=== PATIENT | female | born 1935 | race African-American/Black ===

== ENCOUNTER 2016-11-16 20:03 | Inpatient (IN) ==
[2016-11-16] MEDS ORDERED: SODIUM CHLORIDE 0.9% 1,000 ML IV STA (21:23)
--- NOTE | 2016-11-16 21:31 | Emergency Department Note ---
Arrival - Arrival Chief Complaint: Fever ED Nursing Triage Note: Pt arrives via ems from home with complaints of decreased appetite and weakness over the last few days. Pt has histroy of Breast cancer and according to daughter she recently had a stomach virus last week and has not been eating since. Pt is noted to have a temp of 99.6 at time of triage. Last chemo treatment was 3 weeks ago and pt is scheduled to return for treatment 11/19/16 at [facility]. Mode of Arrival: Stretcher Time Seen by Provider: 11/16/16 20:58 - History of Present Illness HPI Narrative: This is an 81-year-old female of descent with a history of hypertension , gout, rheumatoid arthritis, and breast cancer receiving Kadcyla every 3 weeks the next dose of which should be in the next 3 days who presents with a fever decrease in appetite and decreased mental status. There has been no cough chest pain or shortness of breath. The patient had what appeared to be a stomach virus approximately 1 week ago characterized by vomiting and diarrhea which is now resolved. Since that time the family is concerned because of the fever and the unwillingness to eat or drink. Date of Last Menstrual Period: hyster Allergies/Adverse Reactions: Allergies Allergy/AdvReac Type Severity Reaction Status Date / Time No Known Allergies Allergy Verified 11/16/16 20:13 Home Medications: Home Medications Medication Instructions Recorded Confirmed Type Allopurinol 100 mg PO DAILY 11/16/16 11/16/16 History Cefuroxime Tab [Ceftin] 500 mg PO BID 11/16/16 11/16/16 History Cholecalciferol (Vitamin D3) 50,000 unit PO DAILY 11/16/16 11/16/16 History [Vitamin D3] Letrozole 2.5 mg PO DAILY 11/16/16 11/16/16 History Losartan Potassium [Cozaar] 100 mg PO DAILY 11/16/16 11/16/16 History Mirtazapine 15 mg PO BEDTIME 11/16/16 11/16/16 History Multivit-Min/FA/Lycopen/Lutein 1 each PO DAILY 11/16/16 11/16/16 History [Centrum Silver Tablet] cloNIDine HCl [Clonidine HCl] 0.1 mg PO DAILY PRN 11/16/16 11/16/16 History Review of System - Review of System Constitutional: Present: fever. Absent: night sweats Eyes: Absent: redness, vision change Head/Ears/Nose/Throat: Absent: epistaxis, nasal drainage Respiratory: Absent: respiratory distress, wheezing Cardiovascular: Absent: dyspnea on exertion, orthopnea Gastrointestinal: Absent: diarrhea, constipation, hematemesis, melena Genitourinary female: Absent: frequency, hematuria Musculoskeletal: Present: joint swelling. Absent: lower back pain, leg pain, neck pain Skin: Absent: change in color, change in hair/nails Neurological: Absent: numbness, paresthesias Psychiatric: Absent: anxiety, suicidal thoughts Endocrine: Absent: heat intolerance, polydipsia Hematological/Lymphatic: Absent: easy bruising, lymphadenopathy Allergic/Immunologic: Absent: urticaria, itchy eyes Medical,Surgical,& Family Hx - Medical History Cardio: History of: Hypertension Rheumatology: History of;: Gout, Rheumatoid Arthritis Reproductive: History of: Breast Cancer - Surgical History Reproductive Surgeries: Surgical HX of;: Hysterectomy - Social History Smoking Status: Never smoker Frequency of Alcohol Use: None Type of Drug Use: None Exam Vital Signs: Vital Signs Temperature 99.6 F 11/16/16 20:03 Pulse Rate 106 H 11/16/16 20:03 Respiratory Rate 20 11/16/16 20:03 Blood Pressure 160/60 11/16/16 20:03 O2 Sat by Pulse Oximetry 99 11/16/16 20:03 - General Exam limited due to: ALOC - Head Head exam: Present: atraumatic, normocephalic - Eye Eye exam: Present: PERRL, EOMI - ENT ENT exam: Present: normal exam - Neck Neck exam: Present: normal inspection, full ROM - Chest Chest inspection: Present: normal inspection - Respiratory Respiratory exam: Present: normal lung sounds bilaterally - Cardiovascular Cardiovascular exam: Present: regular rate, normal rhythm - Abdominal Exam Abdominal exam: Present: other (The patient has diffuse tenderness of the abdomen without guarding or rebound) - Extremities Exam Extremities exam: Present: other (Bilateral knee effusions with warmth is noted) - Back Exam Back exam: Present: normal inspection - Neurological Exam Neurological exam: Present: other (The patient answers questions appropriately but is sleepy.) - Psychiatric Psychiatric exam: Present: normal affect, normal mood - Skin Skin exam: Present: warm, dry
[2016-11-16 22:45] LABS: Apearance,Urine Slightly Hazy (Clear); Bacteria,Urine Occasional /HPF (Few); Bilirubin,Urine Negative (Negative); Blood, Urine Negative (Negative); Glucose,Urine (UA) Negative (Negative); Ketones,Urine 5 mg/dL (Negative); Mucus,Urine Occasional /LPF (Occasional); Nitrite,Urine Negative (Negative); Protein,Urine 30 MG/DL; RBC,Urine 3 /HPF (0-4); Squamous Epithelial Cell,Urine Occasional /HPF (0-10); Urine Color Yellow (Yellow); Urine Specific Gravity 1.013 (1.001-1.035); Urine Urobilinogen < 2.0 EU/DL (0.2-1.0)
[2016-11-16 23:00] LABS: Basophils % 0.1 % (0.0-0.8); Hematocrit 29.9 VOL% (35.7-47.0); Hemoglobin 9.9 GM/DL (12.0-16.0); Immature Granulocytes % 0.5 %; Lymphocytes % 9.7 % (21.3-54.2); Mean Corpuscular HGB Conc 33.1 GM/DL (32-36); Mean Corpuscular Hemoglobin 29 PG (27-34); Mean Corpuscular Volume 86.2 FL (87-102); Mean Platelet Volume 12.3 FL (9.6-12.0); Monocytes # 3.9 10*3/uL (0.11-0.8); Monocytes % 18.7 % (1.7-12.7); Neutrophils # 14.8 10*3/uL (1.4-7.4); Platelet Count 164 T/CUMM (130-400); Red Blood Count 3.47 MC/CUMM (3.8-5.5); Red Cell Distribution Width 13.7 % (9.3-17.3); White Blood Count 20.9 T/CUMM (4-12)
[2016-11-16 23:15] LABS: Albumin 2.5 G/DL (3.4-5.0); Bilirubin,Total 0.8 MG/DL (0.2-1.0); Calcium 10.3 MG/DL (8.5-10.1); Osmolality,Calculated 264.7 MOS/KG (273-304); Potassium 3.7 MMOL/L (3.5-5.1); Total Protein 7.8 G/DL (6.4-8.3)
[2016-11-16] MEDS ORDERED: VANCOMYCIN INJ 1,000 MG in SODIUM CHLORIDE 0.9% 250 ML IV STA (23:58)
[2016-11-16] MEDS ORDERED: PIPERACILLIN/TAZOBACTAM 3,375 MG in SODIUM CHLORIDE 0.9% 100 ML IV STA (23:58)
[2016-11-17] MEDS ORDERED: PIPERACILLIN/TAZOBACTAM 3,375 MG VIAL IV ONE (00:34)
[2016-11-17] MEDS ORDERED: SODIUM CHLORIDE 0.9% 100 ML IV ONE (00:34)
[2016-11-17] MEDS ORDERED: VANCOMYCIN 1,000 MG VIAL ONE (00:34)
[2016-11-17 01:34] LABS: Band Neutrophils 1 % (0-10); Lymphocytes 9 % (20-55); Segmented Neutrophils 69 % (50-85); Total Cells Counted 100
[2016-11-17 01:35] LABS: Platelet Estimate Normal
[2016-11-17] MEDS ORDERED: metroNIDAZOLE INJ 500 MG in PREMIX 1 EACH IV SCH (02:30)
[2016-11-17] MEDS: SODIUM CHLORIDE 0.9% 1,000 ML IV SCH ×3 (02:56→17:56)
--- NOTE | 2016-11-17 04:41 | Event Note ---
Patient seen and examined. Please see H&P for additional details. Briefly, patient is an 81 yo female with PMH significant for breast cancer (last chemo was 3 weeks ago), HTN, vitamin D deficiency, insomnia, and gout. She was admitted for worsening anorexia and weakness which has been going on for several days. Symptoms started after an episode of gastroenteritis characterized by nausea and vomitting, which has now resolved. Patient denies any cough/cp/sob/rash. Vitals reviewed. Tachycardia has resolved. She is hemodynamically and clinically stable. Labs reviewed. CT of the head/chest/abdomen/pelvis reported as unremarkable by ER staff (report not yet available). Active Issues: 1. SIRS: given tachycardia upon admission and leukocytosis. Source of possible infection is unknown. Will continue empiric zosyn. Monitor leukocytosis. Check lactic acid. Await blood culture results. 2. MIRIAM/dehydration: IVFs; monitor renal functions 3. Anorexia-cachexia: poor appetite started after stomach bug. Patient no longer has diarrhea. If recurs, will check for c. diff. Will consult nutrition; add nutritional supplements. 4. Malnutrition 5. Comorbid conditions: h/o breast cancer, HTN, gout: restart home medications as appropriate; medications have been reconciled DVT prophalaxis The plan of care may be modified as more information becomes available.
--- NOTE | 2016-11-17 04:49 | Hospitalist History & Physical ---
Assessment and Plan - Time spent with patient Time spent with patient: Greater than 30 minutes (1) SIRS (systemic inflammatory response syndrome) Status: Acute Assessment and plan: Admit to hospitalist services. WBC 20.9. Tachycardic at 106 bpm. Blood cultures drawn in ED. Fluids and abx given in ED. Continue Zosyn 3.375 mg IV Q8 hours. Continue IV fluids, NS at 125 ml/hr. Check stool for c-diff and culture. Check lactic acid. Recheck CBC and BMP in AM. Current Visit: Yes (2) Dehydration Status: Acute Current Visit: Yes (3) Acute kidney injury Status: Acute Assessment and plan: Creatinine 1.2. Continue IV hydration, NS at 125 ml/hr. Recheck BMP in AM. Current Visit: Yes (4) Hypertension Status: Acute Assessment and plan: BP stable at this time. Hold home BP meds for now. Continue to monitor. Current Visit: Yes (5) History of gout Status: Chronic Assessment and plan: Continue home dose of allopurinol. Current Visit: No (6) DVT prophylaxis Status: Acute Assessment and plan: Lovenox 40 mg SQ daily. Current Visit: Yes History of Present Illness Chief complaint: lethargy History of present illness: Ms. 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 Her daughter reports that the patient is normally very talkative and interactive, but over the last week she has been increasingly lethargic. Today she was very difficult to arouse and wouldn't eat or drink anything. The daughter reports that 2 weeks ago, the patient had a 1 week episode of diarrhea. The diarrhea has resolved, but the patient has been unwilling to eat much since for fear of returning diarrhea. In the ED, she was found to have a WBC count of 20.9 and a temp of 99.6. CT of head and abdomen/ pelvis showed no acute findings. The patient is currently taking chemo treatments with Kadcyla every 3 weeks for breast cancer. Her last treatment was 3 weeks ago, and her next should be on 11/19/16 which is treatment 3 of 5. 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 She has been taking the ceftin since March. Hospitalist services were consulted, and the patient will be admitted for further evaluation and treatment. Home Medications Medication Instructions Recorded Confirmed Type Allopurinol 100 mg PO DAILY 11/16/16 11/17/16 History Cefuroxime Tab [Ceftin] 500 mg PO BID 11/16/16 11/17/16 History Cholecalciferol (Vitamin D3) 50,000 unit PO DAILY 11/16/16 11/17/16 History [Vitamin D3] Letrozole 2.5 mg PO DAILY 11/16/16 11/17/16 History Losartan Potassium [Cozaar] 100 mg PO DAILY 11/16/16 11/17/16 History Multivit-Min/FA/Lycopen/Lutein 1 each PO DAILY 11/16/16 11/17/16 History [Centrum Silver Tablet] cloNIDine HCl [Clonidine HCl] 0.1 mg PO DAILY PRN 11/16/16 11/17/16 History Allergies Allergy/AdvReac Type Severity Reaction Status Date / Time No Known Allergies Allergy Verified 11/16/16 20:13 Medical,Surgical,& Family Hx - Medical History Cardio: History of: Hypertension Neurology: History of: Seizures (seizure meds stopped last ) HEENT: History of: HEENT Problems (abcess to jaw; tongue CA) Endocrine: No history of: Diabetes Mellitus (IDDM), Diabetes Mellitus (NIDDM), Thyroid Disorder Rheumatology: History of;: Gout Gastrointestinal: History of: Liver Problems (liver mets) Musculoskeletal: History of: Musculoskeletal Problems (OA of bilateral knees) Hematology: History of: Anemia No history of: Blood Transfusion Reaction Reproductive: History of: Breast Cancer - Surgical History Reproductive Surgeries: Surgical HX of;: Hysterectomy Additional Surgical History: oral cancer removal - Family History Family History: Reports;: Family Cancer, Family Diabetes, Family Heart Disease, Family Hypertension, Family Stroke Denies;: Family Hematology, Family Psychiatric Problems - Social History Smoking Status: Never smoker Have you smoked in the last 12 months: No Frequency of Alcohol Use: None Type of Drug Use: None Marital Status: Lives With:: Nieces Functional capacity: uses cane/walker 12 point system: reviewed and no additional remarkable complaints except as stated - Constitutional Constitutional: Present: daytime sleepiness, lethargy, weakness - EENT Eyes: Absent: blurry vision, diplopia, loss of vision Ears: Absent: decreased hearing, ear discharge, ear pain Nose, mouth and throat: Absent: dysphagia, headache(s), nasal congestion, sore throat - Cardiovascular Cardiovascular: Absent: chest pain at rest, dyspnea, edema, lightheadedness, orthopnea, palpitations - Respiratory Respiratory: Absent: cough, dyspnea, wheezing - Gastrointestinal Gastrointestinal: Absent: abdominal pain, constipation, diarrhea, nausea, vomiting - Genitourinary Genitourinary: Absent: dysuria, urinary frequency - Musculoskeletal Musculoskeletal: Present: arthralgias, joint swelling - Neurological Neurological: Absent: dizziness, numbness, paresthesias, syncope - Psychiatric Psychiatric: Absent: anxiety, depression - Endocrine Endocrine: Absent: cold intolerance, polydipsia, polyphagia, polyuria - Hematologic/Lymphatic Hematologic/Lymphatic: Absent: easy bleeding, easy bruising Exam - Constitutional Vitals: Period Temp Pulse Resp BP Sys/Gallo Pulse Ox Last 24 Hr 98.4 F-99.6 F 84-106 16-22 152-163/56-67 98-99 General appearance: no acute distress (Lethargic; sleeping; easily awaken but falls back to sleep very quickly. Oriented x 3. ) - Head Head exam: Present: normal inspection, normocephalic, atraumatic, other ( bandaids in place under chin from drainage of abscess. ) - Eye Eye exam: Present: EOMI Pupils: Present: MOHINDER - ENT ENT exam: Present: normal external ear exam - Neck Neck exam: Present: normal inspection. Absent: lymphadenopathy - Respiratory Respiratory exam: Present: clear to auscultation bilaterally - Cardiovascular Cardiovascular exam: Present: tachycardia, other (regular rhythm). Absent: diastolic murmur, gallop, systolic murmur - GI/Abdominal GI/Abdominal exam: Present: normal bowel sounds, soft. Absent: distended, guarding, tenderness, rebound - Extremities Exam Extremities exam: Present: normal inspection, normal capillary refill. Absent: edema - Back Exam Back exam: Present: normal inspection - Neurological Exam Neurological exam: Present: oriented X3, other (lethargic and sleeping) - Psychiatric Psychiatric exam: Absent: anxious, depressed - Skin Skin exam: Present: normal color, warm, dry, intact. Absent: rash Results - Labs CBC & BMP: 11/16/16 22:01 11/16/16 22:01 Lab Results: I have reviewed the past 24 hour labs
[2016-11-17] MEDS: PIPERACILLIN/TAZOBACTAM 3,375 MG in SODIUM CHLORIDE 0.9% 100 ML IV SCH ×3 (05:03→20:42)
[2016-11-17 07:37] LABS: Basophils % 0.2 % (0.0-0.8); Hematocrit 28.2 VOL% (35.7-47.0); Hemoglobin 9.3 GM/DL (12.0-16.0); Immature Granulocytes % 0.6 %; Immature Granulocytes Absolute 0.13 #; Lymphocytes # 1.8 10*3/uL (1.4-4.0); Lymphocytes % 8.8 % (21.3-54.2); Mean Corpuscular Hemoglobin 28 PG (27-34); Mean Platelet Volume 11.8 FL (9.6-12.0); Monocytes # 2.3 10*3/uL (0.11-0.8); Monocytes % 11.1 % (1.7-12.7); Neutrophils # 16.2 10*3/uL (1.4-7.4); Neutrophils % 79.3 % (38.7-73.9); Platelet Count 151 T/CUMM (130-400); Red Blood Count 3.28 MC/CUMM (3.8-5.5); Red Cell Distribution Width 13.8 % (9.3-17.3); White Blood Count 20.4 T/CUMM (4-12)
[2016-11-17 08:00] LABS: Calcium 9.2 MG/DL (8.5-10.1); Osmolality,Calculated 268.4 MOS/KG (273-304); Potassium 3.6 MMOL/L (3.5-5.1)
[2016-11-17] MEDS: ENOXAPARIN 40 MG/0.4 ML SYRINGE SUBCUT SCH ×2 (09:00→13:17)
--- NOTE | 2016-11-17 09:17 | CT Report ---
Exam: CT head without intravenous contrast Clinical History: 81-year-old female with altered mental status, confusion and disorientation Technique: Axial computed tomography images of the head/brain without intravenous contrast Comparison: No relevant comparisons Findings: Brain: Generalized atrophy with microangiopathic small vessel ischemic changes and chronic bilateral basal ganglia lacunar infarcts. Nayak-white matter distinction maintained. No mass effect. No intra or extra-axial hemorrhage. Ventricles: Symmetric ventriculomegaly related to underlying parenchymal loss. Bones/joints: Calvarium is intact Soft tissues: Unremarkable Sinuses: No active paranasal sinus process Mastoid air cells: Unremarkable visualized. Impression: 1. Chronic changes. No acute intracranial abnormality PROCEDURE INTERPRETED AT [facility] DEPARTMENT OF RADIOLOGY Final Report Signed by: Everton Nayak
[2016-11-17] MEDS: MULTIVITAMIN (CENTRUM) TABLET PO SCH (09:28)
[2016-11-17] MEDS: ALLOPURINOL 100 MG TABLET PO SCH (09:34)
--- NOTE | 2016-11-17 09:36 | CT Report ---
Exam: CT chest with intravenous contrast Clinical History: 81-year-old female with fever and generalized pain throughout the chest and abdomen Technique: Axial computed tomography images of the chest with intravenous contrast. The CT exam was performed using one or more of the following dose reduction techniques: Automated exposure control, adjustment of the mA and/or kV according to patient size, or use of iterative reconstruction technique. Contrast: 100 mL of Omnipaque 350 administered intravenously. Comparison: No relevant prior studies available Findings: Lungs: Chronic coarsened interstitial densities with dependent changes at the lung bases. No mass. No central pulmonary embolism. Remote granulomatous changes.. Pleural spaces: No pneumothorax. No significant effusion Heart: Four-chamber cardiomegaly with atheromatous plaquing. No pericardial effusion Mediastinum: Intact. Normal trachea Bones/joints: Intact. No acute fracture. Degenerative changes throughout the spinal axis. Diffuse osseous demineralization. Focal sclerosis involving the sternum Soft tissues: 4.0 cm masslike lesion involving the left breast. Additional soft tissue mass that appears to involve the costosternal junction measures approximately 3.4 cm Vasculature: Dense plaquing along the arch. Satisfactory positioning of right chest port Lymph nodes: No enlarged lymph nodes Impression: 1. No acute intrathoracic abnormality 2. 4.0 cm left breast mass 3. Focal sclerosis involving the sternum as well as soft tissue mass along the left costosternal junction concerning for metastasis ____ Exam: CT abdomen and pelvis with intravenous contrast Exam date: 11/16/2016 Clinical History: 81-year-old female with fever and generalized chest and abdominal pain Technique: Axial computed tomography images of the abdomen and pelvis with intravenous contrast. All CT scans at this facility use one or more dose reduction techniques. Automated exposure control, MA/KV adjustment per patient size (including targeted exam Square dose is matched to indication) or iterative reconstruction technique Contrast: 100 mL of Omnipaque 350 administered intravenously Comparison: No relevant prior studies Findings: Lower thorax: No acute pathologic findings at the lung bases Abdomen: Liver: Enlarged and diffusely heterogeneous with numerous hypodense nodularities throughout the liver parenchyma, largest measures up to 7.0 cm. Gallbladder and bile ducts: Gallbladder is prominent with possible sludge. No calcified stones. No ductal dilatation. Pancreas: Pancreas is atrophic. Spleen: Spleen is normal. Adrenals: Nodularity involving the bilateral adrenal glands. Kidneys and ureters: Kidneys are grossly normal allowing for phase of contrast. No hydronephrosis. No ureteral calculus. Stomach and bowel: Extensive colonic diverticula. No evidence of active inflammatory changes. No evidence of acute gastritis, colitis or enteritis. No bowel obstruction. Appendix: Nonvisualized. No secondary signs to suggest appendicitis. Pelvis: Bladder: Unremarkable Reproductive: Prior hysterectomy. Abdomen and pelvis: Intraperitoneal space: No pneumoperitoneum. Stranding throughout the mesentery, nonspecific. Trace perihepatic fluid. Bones/joints: No acute osseous abnormality. Sclerotic lesion involving the left superior ramus and anterior acetabulum. Soft tissues: No mass Vasculature: No aortic aneurysm Lymph nodes: Nonspecific shotty mesenteric, inguinal and retroperitoneal lymph nodes Impression: 1. Diffuse hepatic metastasis 2. Diverticulosis coli 3. Suspect osseous metastasis of the pelvis without pathologic fracture 4. Other findings as discussed above Further evaluation with PET/CT is suggested PROCEDURE INTERPRETED AT [facility] DEPARTMENT OF RADIOLOGY Final Report Signed by: Everton Nayak
[2016-11-17] MEDS ORDERED: CYPROHEPTADINE 0.4 MG/ML 30 ML/BOTTLE PO SCH (15:00)
[2016-11-17 16:35] LABS: Hypochromasia 1+; Lymphocytes 12 % (20-55); Platelet Estimate Adequate; Polychromasia Slight; Segmented Neutrophils 79 % (50-85); Total Cells Counted 100
[2016-11-17] MEDS: CYPROHEPTADINE 4 MG TABLET PO SCH (20:41)
[2016-11-18] MEDS: PIPERACILLIN/TAZOBACTAM 3,375 MG in SODIUM CHLORIDE 0.9% 100 ML IV SCH ×3 (04:44→21:23)
[2016-11-18] MEDS: SODIUM CHLORIDE 0.9% 1,000 ML IV SCH ×4 (04:46→21:23)
[2016-11-18] MEDS: ALLOPURINOL 100 MG TABLET PO SCH (08:57)
[2016-11-18] MEDS: ACETAMINOPHEN 325 MG TABLET PO PRN (08:57)
[2016-11-18] MEDS: CYPROHEPTADINE 4 MG TABLET PO SCH ×3 (08:57→21:23)
[2016-11-18] MEDS: MULTIVITAMIN (CENTRUM) TABLET PO SCH (08:57)
[2016-11-18] MEDS: ENOXAPARIN 40 MG/0.4 ML SYRINGE SUBCUT SCH (08:58)
[2016-11-18] MEDS: LOSARTAN 50 MG TABLET PO SCH (14:01)
[2016-11-18] MEDS: LETROZOLE 2.5 MG TABLET PO SCH (14:01)
--- NOTE | 2016-11-18 16:25 | Hospitalist Progress Note ---
Hospitalist: Subjective Interval history: 81-year-old female who was admitted with lethargy and SIRS. She is more awake alert today. Exam - Constitutional Vitals: Period Temp Pulse Resp BP Sys/Gallo Pulse Ox Last 24 Hr 96.5 F-98.2 F 64-73 16-18 139-158/53-63 96-100 Exam: General: No Acute Distress HEENT: Normocephalic, atraumatic, Extra ocular movements intact Neck: Supple, No JVD Chest: Clear to auscultation B/L CV: S1 + S2 audible without murmur, gallop or rub Abd: soft, NT, Non-distended, BS + Ext: No edema Skin: No purpura, bruising or rash Rheumatologic: No Joint deformities Neurologic: Strength 5/5 all extremities, no gross sensory deficits Results - Labs CBC & BMP: 11/17/16 07:24 11/17/16 07:24 - Impressions Assessment and Plan (1) SIRS (systemic inflammatory response syndrome) Status: Acute Assessment and plan: Continue IV Zosyn, this is improving Current Visit: Yes (2) Dehydration Status: Acute Current Visit: Yes This is better with IV fluids (3) Acute kidney injury Status: Acute Assessment and plan: Improving with IV fluid Current Visit: Yes (4) Hypertension, Ess Status: Acute Assessment and plan: Controlled continue home losartan Current Visit: Yes (5) History of gout Status: Chronic Assessment and plan: Continue home dose of allopurinol. Current Visit: No (6) DVT prophylaxis Status: Acute Assessment and plan: Lovenox 40 mg SQ daily. Current Visit: Yes (7) Breast CA with mets to liver and sternum Status: Chronic Assessment and plan: Continue home letrozole Current Visit: No Discharge plan to swing bed per family's request, continue PT
[2016-11-18] MEDS: MAGNESIUM OXIDE 400 MG TABLET PO SCH (17:07)
[2016-11-18] MEDS: DESITIN 4OZ/NYSTATIN 15 GRAM MIXTURE PASTE TOP SCH (21:24)
[2016-11-19] MEDS: SODIUM CHLORIDE 0.9% 1,000 ML IV SCH ×3 (00:16→16:03)
[2016-11-19] MEDS: PIPERACILLIN/TAZOBACTAM 3,375 MG in SODIUM CHLORIDE 0.9% 100 ML IV SCH ×3 (06:06→21:24)
[2016-11-19] MEDS: LOSARTAN 50 MG TABLET PO SCH (10:06)
[2016-11-19] MEDS: MULTIVITAMIN (CENTRUM) TABLET PO SCH (10:06)
[2016-11-19] MEDS: ALLOPURINOL 100 MG TABLET PO SCH (10:06)
[2016-11-19] MEDS: ENOXAPARIN 40 MG/0.4 ML SYRINGE SUBCUT SCH (10:06)
[2016-11-19] MEDS: ACETAMINOPHEN 325 MG TABLET PO PRN (10:06)
[2016-11-19] MEDS: CYPROHEPTADINE 4 MG TABLET PO SCH ×3 (10:07→21:24)
[2016-11-19] MEDS: LETROZOLE 2.5 MG TABLET PO SCH (10:07)
[2016-11-19] MEDS: MAGNESIUM OXIDE 400 MG TABLET PO SCH (10:07)
[2016-11-19] MEDS: DESITIN 4OZ/NYSTATIN 15 GRAM MIXTURE PASTE TOP SCH ×2 (10:07→21:24)
[2016-11-19] MEDS ORDERED: LOPERAMIDE 2 MG CAPSULE PO ONE (10:40)
--- NOTE | 2016-11-19 17:34 | Hospitalist Progress Note ---
Hospitalist: Subjective Interval history: 81-year-old female who was admitted with lethargy and SIRS. She is more awake alert today. Exam - Constitutional Vitals: Period Temp Pulse Resp BP Sys/Gallo Pulse Ox Last 24 Hr 96.9 F-98.6 F 54-70 18-24 137-157/56-64 96-99 Exam: General: No Acute Distress HEENT: Normocephalic, atraumatic, Extra ocular movements intact Neck: Supple, No JVD Chest: Clear to auscultation B/L CV: S1 + S2 audible without murmur, gallop or rub Abd: soft, NT, Non-distended, BS + Ext: No edema Skin: No purpura, bruising or rash Rheumatologic: No Joint deformities Neurologic: Strength 5/5 all extremities, no gross sensory deficits Results - Labs CBC & BMP: 11/17/16 07:24 11/17/16 07:24 - Impressions Assessment and Plan (1) SIRS (systemic inflammatory response syndrome) Status: Acute Assessment and plan: Continue IV Zosyn, this is improving Current Visit: Yes (2) Dehydration Status: Acute Current Visit: Yes This is better with IV fluids (3) Acute kidney injury Status: Acute Assessment and plan: Improving with IV fluid Current Visit: Yes (4) Hypertension, Ess Status: Acute Assessment and plan: Controlled continue home losartan Current Visit: Yes (5) History of gout Status: Chronic Assessment and plan: Continue home dose of allopurinol. Current Visit: No (6) DVT prophylaxis Status: Acute Assessment and plan: Lovenox 40 mg SQ daily. Current Visit: Yes (7) Breast CA with mets to liver and sternum Status: Chronic Assessment and plan: Continue home letrozole Current Visit: No Discharge plan to swing bed per family's request, continue PT
[2016-11-20] MEDS: SODIUM CHLORIDE 0.9% 1,000 ML IV SCH ×3 (01:03→20:51)
[2016-11-20] MEDS: LOPERAMIDE 2 MG CAPSULE PO PRN ×2 (03:20→14:13)
[2016-11-20] MEDS: PIPERACILLIN/TAZOBACTAM 3,375 MG in SODIUM CHLORIDE 0.9% 100 ML IV SCH ×3 (06:26→20:44)
[2016-11-20] MEDS: ALLOPURINOL 100 MG TABLET PO SCH (09:11)
[2016-11-20] MEDS: CYPROHEPTADINE 4 MG TABLET PO SCH ×3 (09:11→20:43)
[2016-11-20] MEDS: LOSARTAN 50 MG TABLET PO SCH (09:11)
[2016-11-20] MEDS: LETROZOLE 2.5 MG TABLET PO SCH (09:12)
[2016-11-20] MEDS: MULTIVITAMIN (CENTRUM) TABLET PO SCH (09:12)
[2016-11-20] MEDS ORDERED: TUBERCULIN SKIN TEST 0.1 ML SYRINGE INTRADERM ONE (09:12)
[2016-11-20] MEDS: ENOXAPARIN 40 MG/0.4 ML SYRINGE SUBCUT SCH (09:12)
[2016-11-20] MEDS: DESITIN 4OZ/NYSTATIN 15 GRAM MIXTURE PASTE TOP SCH ×2 (09:13→20:52)
[2016-11-20] MEDS: MAGNESIUM OXIDE 400 MG TABLET PO SCH (09:29)
[2016-11-20] MEDS: LACTOBACILLUS ACIDOPHILUS/BULGARICUS CAPLET PO SCH (09:32)
--- NOTE | 2016-11-20 11:21 | Case Mgmt Physician Query Form ---
TB Signs and Symptoms Screening ([place]) INSTRUCTIONS: To be completed annually on residents/staff with a significant Tuberculin Skin Test (TST) upon admission/hire or a prior significant TST. To be completed on all staff at hire. Please respond to each listed symptom with an (X) in either the "YES" or "NO" box. Do you currently have any of the following symptoms: YES NO ( ) ( x) A cough If yes, is it: ( ) Productive ( ) Non- productive ( ) ( x) Hemoptysis (spitting up blood) ( ) ( x) Chest pains ( ) ( x) Weight Loss ( ) ( x) Fever ( ) ( x) Night Sweats ( ) ( x) Weakness ( ) ( x) Loss of Appetite ( ) ( x) Difficulty Breathing If you answered YES" to any of the above questions, how long have symptoms been present? Comments: If you have any questions, please contact me . Thank you, Doris DA SILVA Email: [email or web address] [facility]
--- NOTE | 2016-11-20 12:25 | XRay Report ---
Portable chest November 20, 2016 at 1000 hours Indication: Shortness of breath, cough Comparison: Not available Findings: Cardiomediastinal contours are normal. Chemo-Port in satisfactory position. Central interstitial reticulonodular opacities, felt to represent hypoaeration changes. No acute osseous abnormalities. Visualized upper abdomen demonstrates no acute pathology. Impression: No acute cardiopulmonary findings PROCEDURE INTERPRETED AT [facility] DEPARTMENT OF RADIOLOGY Final Report Signed by: Everton Nayak
--- NOTE | 2016-11-20 13:46 | Hospitalist Progress Note ---
Assessment and Plan - Time spent with patient Time spent with patient: Less than 30 minutes (1) SIRS (systemic inflammatory response syndrome) Status: Acute Assessment and plan: 11/20/16 Continue IV zosyn continue to monitor Will discuss with Dr Pickard for further recommendations with care Current Visit: Yes (2) Acute kidney injury Status: Acute Assessment and plan: 11/20/16 improved continue IV fluids Current Visit: Yes (3) Dehydration Status: Acute Current Visit: Yes Hospitalist: Subjective Interval history: Ms Hanley seen and chart reviewed. She verbalized feeling better this a.m. She is very pleasant and more alert and talking clearly when asked questions. She denies shortness of breath, chest pain, fever or chills. Exam - Constitutional Vitals: Period Temp Pulse Resp BP Sys/Gallo Pulse Ox Last 24 Hr 97.2 F-98.5 F 54-74 16-21 138-153/56-63 94-99 General appearance: no acute distress - Head Head exam: Present: normal inspection - Eye Eye exam: Present: EOMI Pupils: Present: MOHINDER - Neck Neck exam: Present: normal inspection - Respiratory Respiratory exam: Present: clear to auscultation bilaterally. Absent: wheezes - Cardiovascular Cardiovascular exam: Present: regular rate and rhythm - GI/Abdominal GI/Abdominal exam: Present: normal bowel sounds, soft. Absent: tenderness, rebound - Extremities Exam Extremities exam: Absent: edema - Neurological Exam Neurological exam: Present: alert - Psychiatric Psychiatric exam: Present: normal affect, normal mood. Absent: agitated, anxious - Skin Skin exam: Present: normal color, warm, dry Results - Labs CBC & BMP: 11/17/16 07:24 11/17/16 07:24 Lab Results: I have reviewed the past 24 hour labs Labs: No new labs this a.m. Will order repeat labs for a.m.
[2016-11-20] MEDS: ACETAMINOPHEN 325 MG TABLET PO PRN (20:44)
[2016-11-21] MEDS: PIPERACILLIN/TAZOBACTAM 3,375 MG in SODIUM CHLORIDE 0.9% 100 ML IV SCH ×3 (04:21→20:46)
[2016-11-21] MEDS: SODIUM CHLORIDE 0.9% 1,000 ML IV SCH (04:22)
[2016-11-21 08:06] LABS: Basophils % 0.2 % (0.0-0.8); Eosinophils # 0.1 10*3/uL (0.0-0.87); Eosinophils % 0.5 % (0.00-10.9); Hematocrit 27.6 VOL% (35.7-47.0); Hemoglobin 8.8 GM/DL (12.0-16.0); Immature Granulocytes % 0.4 %; Immature Granulocytes Absolute 0.05 #; Lymphocytes # 2.1 10*3/uL (1.4-4.0); Lymphocytes % 16.4 % (21.3-54.2); Mean Corpuscular HGB Conc 31.9 GM/DL (32-36); Mean Corpuscular Hemoglobin 28 PG (27-34); Mean Corpuscular Volume 87.3 FL (87-102); Mean Platelet Volume 11.6 FL (9.6-12.0); Monocytes # 2.2 10*3/uL (0.11-0.8); Monocytes % 17.7 % (1.7-12.7); Neutrophils # 8.1 10*3/uL (1.4-7.4); Neutrophils % 64.8 % (38.7-73.9); Platelet Count 184 T/CUMM (130-400); Red Blood Count 3.16 MC/CUMM (3.8-5.5); Red Cell Distribution Width 14.1 % (9.3-17.3); White Blood Count 12.5 T/CUMM (4-12)
[2016-11-21 08:31] LABS: Eosinophils 1 % (0-10); Lymphocytes 13 % (20-55); Segmented Neutrophils 73 % (50-85); Total Cells Counted 100
[2016-11-21 08:32] LABS: Hypochromasia 1+; Microcytosis Slight; Platelet Estimate Adequate
[2016-11-21 08:37] LABS: Calcium 8.5 MG/DL (8.5-10.1); Magnesium 1.4 MG/DL (1.8-2.4); Osmolality,Calculated 279.3 MOS/KG (273-304); Potassium 3.5 MMOL/L (3.5-5.1)
[2016-11-21] MEDS: DESITIN 4OZ/NYSTATIN 15 GRAM MIXTURE PASTE TOP SCH ×2 (10:04→20:46)
[2016-11-21] MEDS: CYPROHEPTADINE 4 MG TABLET PO SCH ×3 (10:04→20:46)
[2016-11-21] MEDS: LETROZOLE 2.5 MG TABLET PO SCH (10:04)
[2016-11-21] MEDS: LACTOBACILLUS ACIDOPHILUS/BULGARICUS CAPLET PO SCH (10:04)
[2016-11-21] MEDS: ENOXAPARIN 40 MG/0.4 ML SYRINGE SUBCUT SCH (10:04)
[2016-11-21] MEDS: LOSARTAN 50 MG TABLET PO SCH (10:04)
[2016-11-21] MEDS: MULTIVITAMIN (CENTRUM) TABLET PO SCH (10:04)
[2016-11-21] MEDS: MAGNESIUM OXIDE 400 MG TABLET PO SCH (10:04)
[2016-11-21] MEDS: ALLOPURINOL 100 MG TABLET PO SCH (10:05)
--- NOTE | 2016-11-21 16:45 | Hospitalist Progress Note ---
Hospitalist: Subjective Interval history: Ms Hanley seen and chart reviewed. She verbalized feeling better this a.m. She is very pleasant and more alert and talking clearly when asked questions. She denies shortness of breath, chest pain, fever or chills. Exam - Constitutional Vitals: Period Temp Pulse Resp BP Sys/Gallo Pulse Ox Last 24 Hr 97.3 F-98.6 F 73-85 16-20 131-157/56-72 91-98 Exam: General: No Acute Distress HEENT: Normocephalic, atraumatic, Extra ocular movements intact Neck: Supple, No JVD Chest: Clear to auscultation B/L CV: S1 + S2 audible without murmur, gallop or rub Abd: soft, NT, Non-distended, BS + Ext: No edema Skin: No purpura, bruising or rash Rheumatologic: No Joint deformities Neurologic: Strength 5/5 all extremities, no gross sensory deficits Results - Labs CBC & BMP: 11/21/16 06:57 11/21/16 06:57 - Impressions Assessment and Plan (1) SIRS (systemic inflammatory response syndrome) Status: Acute Assessment and plan: Better ,continue IV zosyn continue to monitor Will discuss with Dr Pickard for further recommendations with care Current Visit: Yes (2) Acute kidney injury/dehydration Status: Acute Assessment and plan: This is improved with IV fluid Current Visit: Yes Metabolic encephalopathy and confusion due to infection and SIRS has also improved significantly. She she is getting closer to swing bed discharge.
[2016-11-21] MEDS: ACETAMINOPHEN 325 MG TABLET PO PRN (21:00)
[2016-11-22] MEDS: PIPERACILLIN/TAZOBACTAM 3,375 MG in SODIUM CHLORIDE 0.9% 100 ML IV SCH ×3 (04:37→21:44)
[2016-11-22] MEDS: MULTIVITAMIN (CENTRUM) TABLET PO SCH (08:46)
[2016-11-22] MEDS: LOSARTAN 50 MG TABLET PO SCH (08:46)
[2016-11-22] MEDS: MAGNESIUM OXIDE 400 MG TABLET PO SCH (08:46)
[2016-11-22] MEDS: ALLOPURINOL 100 MG TABLET PO SCH (08:46)
[2016-11-22] MEDS: LACTOBACILLUS ACIDOPHILUS/BULGARICUS CAPLET PO SCH (08:47)
[2016-11-22] MEDS: LETROZOLE 2.5 MG TABLET PO SCH (08:47)
[2016-11-22] MEDS: ENOXAPARIN 40 MG/0.4 ML SYRINGE SUBCUT SCH (08:47)
[2016-11-22] MEDS: CYPROHEPTADINE 4 MG TABLET PO SCH ×3 (08:47→21:43)
[2016-11-22] MEDS: DESITIN 4OZ/NYSTATIN 15 GRAM MIXTURE PASTE TOP SCH ×2 (13:20→21:47)
[2016-11-22] MEDS: ACETAMINOPHEN 325 MG TABLET PO PRN (16:20)
[2016-11-22] MEDS: FUROSEMIDE 20 MG TABLET PO SCH (16:20)
--- NOTE | 2016-11-22 17:16 | Hospitalist Progress Note ---
Hospitalist: Subjective Interval history: Patient is feeling better today. She is also eating better Exam - Constitutional Vitals: Period Temp Pulse Resp BP Sys/Gallo Pulse Ox Last 24 Hr 98.3 F-101.3 F 81-89 16-22 122-151/54-73 96-99 Exam: General: No Acute Distress HEENT: Normocephalic, atraumatic, Extra ocular movements intact Neck: Supple, No JVD Chest: Clear to auscultation B/L CV: S1 + S2 audible without murmur, gallop or rub Abd: soft, NT, Non-distended, BS + Ext: No edema Skin: No purpura, bruising or rash Rheumatologic: No Joint deformities Neurologic: Strength 5/5 all extremities, no gross sensory deficits Results - Labs CBC & BMP: 11/21/16 06:57 11/21/16 06:57 - Impressions Assessment and Plan (1) SIRS (systemic inflammatory response syndrome) Status: Acute Assessment and plan: Better ,continue IV zosyn continue to monitor Will discuss with Dr Pickard for further recommendations with care Current Visit: Yes (2) Acute kidney injury/dehydration Status: Acute Assessment and plan: This is improved with IV fluid Current Visit: Yes Discharge plan to swing bed next week
[2016-11-23] MEDS: LOPERAMIDE 2 MG CAPSULE PO PRN (04:24)
[2016-11-23] MEDS: PIPERACILLIN/TAZOBACTAM 3,375 MG in SODIUM CHLORIDE 0.9% 100 ML IV SCH ×3 (04:37→23:49)
[2016-11-23] MEDS: ENOXAPARIN 40 MG/0.4 ML SYRINGE SUBCUT SCH (08:20)
[2016-11-23] MEDS: LETROZOLE 2.5 MG TABLET PO SCH (08:20)
[2016-11-23] MEDS: LACTOBACILLUS ACIDOPHILUS/BULGARICUS CAPLET PO SCH (08:20)
[2016-11-23] MEDS: MULTIVITAMIN (CENTRUM) TABLET PO SCH (08:21)
[2016-11-23] MEDS: CYPROHEPTADINE 4 MG TABLET PO SCH ×3 (08:21→21:47)
[2016-11-23] MEDS: LOSARTAN 50 MG TABLET PO SCH (08:21)
[2016-11-23] MEDS: FUROSEMIDE 20 MG TABLET PO SCH (08:21)
[2016-11-23] MEDS: MAGNESIUM OXIDE 400 MG TABLET PO SCH ×2 (08:21→21:48)
[2016-11-23] MEDS: ALLOPURINOL 100 MG TABLET PO SCH (08:22)
[2016-11-23 09:53] LABS: Calcium 8.7 MG/DL (8.5-10.1); Magnesium 1.4 MG/DL (1.8-2.4)
[2016-11-23] MEDS ORDERED: POTASSIUM CHLORIDE RIDER 10 MEQ in PREMIX 1 EACH IV PRN (10:23)
[2016-11-23] MEDS: POTASSIUM CHLORIDE RIDER 10 MEQ in PREMIX 1 EACH IV PRN ×3 (10:46→22:02)
[2016-11-23] MEDS: DESITIN 4OZ/NYSTATIN 15 GRAM MIXTURE PASTE TOP SCH ×2 (14:18→23:49)
--- NOTE | 2016-11-23 15:41 | Hospitalist Progress Note ---
Hospitalist: Subjective Interval history: Patient is feeling better today. She is also eating better Exam - Constitutional Vitals: Period Temp Pulse Resp BP Sys/Gallo Pulse Ox Last 24 Hr 97.1 F-101.3 F 80-86 16-20 123-151/48-63 94-98 Exam: General: No Acute Distress HEENT: Normocephalic, atraumatic, Extra ocular movements intact Neck: Supple, No JVD Chest: Clear to auscultation B/L CV: S1 + S2 audible without murmur, gallop or rub Abd: soft, NT, Non-distended, BS + Ext: No edema Skin: No purpura, bruising or rash Rheumatologic: No Joint deformities Neurologic: Strength 5/5 all extremities, no gross sensory deficits Results - Labs CBC & BMP: 11/21/16 06:57 11/23/16 08:39 - Impressions Assessment and Plan (1) SIRS (systemic inflammatory response syndrome) Status: Acute Assessment and plan: Better ,continue IV zosyn continue to monitor Will discuss with Dr Pickard for further recommendations with care Current Visit: Yes (2) Acute kidney injury/dehydration Status: Acute Assessment and plan: This is improved with IV fluid Current Visit: Yes Discharge plan to swing bed next week
[2016-11-24] MEDS: POTASSIUM CHLORIDE RIDER 10 MEQ in PREMIX 1 EACH IV PRN (03:47)
[2016-11-24 05:42] LABS: Basophils % 0.2 % (0.0-0.8); Eosinophils # 0.1 10*3/uL (0.0-0.87); Eosinophils % 0.7 % (0.00-10.9); Hematocrit 23.4 VOL% (35.7-47.0); Hemoglobin 7.7 GM/DL (12.0-16.0); Immature Granulocytes % 0.8 %; Lymphocytes # 2.2 10*3/uL (1.4-4.0); Lymphocytes % 17.3 % (21.3-54.2); Mean Corpuscular HGB Conc 32.9 GM/DL (32-36); Mean Corpuscular Hemoglobin 28 PG (27-34); Mean Corpuscular Volume 85.1 FL (87-102); Mean Platelet Volume 10.8 FL (9.6-12.0); Monocytes # 1.8 10*3/uL (0.11-0.8); Monocytes % 14.1 % (1.7-12.7); Neutrophils # 8.5 10*3/uL (1.4-7.4); Neutrophils % 66.9 % (38.7-73.9); Platelet Count 248 T/CUMM (130-400); Red Blood Count 2.75 MC/CUMM (3.8-5.5); Red Cell Distribution Width 14.6 % (9.3-17.3); White Blood Count 12.8 T/CUMM (4-12)
[2016-11-24 06:18] LABS: Calcium 8.8 MG/DL (8.5-10.1); Osmolality,Calculated 272.8 MOS/KG (273-304); Potassium 3.3 MMOL/L (3.5-5.1)
[2016-11-24] MEDS ORDERED: POTASSIUM CHLORIDE 20 MEQ TABLET PO PRN (07:13)
[2016-11-24] MEDS: CYPROHEPTADINE 4 MG TABLET PO SCH ×3 (08:24→21:03)
[2016-11-24] MEDS: PIPERACILLIN/TAZOBACTAM 3,375 MG in SODIUM CHLORIDE 0.9% 100 ML IV SCH ×3 (08:24→21:04)
[2016-11-24] MEDS: ALLOPURINOL 100 MG TABLET PO SCH (08:25)
[2016-11-24] MEDS: LETROZOLE 2.5 MG TABLET PO SCH (08:25)
[2016-11-24] MEDS: POTASSIUM CHLORIDE 20 MEQ/15 ML UDCUP PER TUBE PRN ×3 (08:25→15:00)
[2016-11-24] MEDS: MULTIVITAMIN (CENTRUM) TABLET PO SCH (08:25)
[2016-11-24] MEDS: MAGNESIUM OXIDE 400 MG TABLET PO SCH ×2 (08:25→21:03)
[2016-11-24] MEDS: ENOXAPARIN 40 MG/0.4 ML SYRINGE SUBCUT SCH (08:25)
[2016-11-24] MEDS: FUROSEMIDE 20 MG TABLET PO SCH (08:25)
[2016-11-24] MEDS: LOSARTAN 50 MG TABLET PO SCH (08:25)
[2016-11-24] MEDS: DESITIN 4OZ/NYSTATIN 15 GRAM MIXTURE PASTE TOP SCH ×2 (08:25→21:12)
[2016-11-24] MEDS: LACTOBACILLUS ACIDOPHILUS/BULGARICUS CAPLET PO SCH (08:25)
[2016-11-24] MEDS ORDERED: SODIUM CHLORIDE 0.9% 250 ML IV PRN (09:22)
--- NOTE | 2016-11-24 13:29 | Hospitalist Progress Note ---
Hospitalist: Subjective Interval history: Patient continues to improve with treatment. She is much more awake and alert today Exam - Constitutional Vitals: Period Temp Pulse Resp BP Sys/Gallo Pulse Ox Last 24 Hr 98.1 F-99.8 F 75-86 16-18 129-147/48-78 95-99 Exam: General: No Acute Distress HEENT: Normocephalic, atraumatic, Extra ocular movements intact Neck: Supple, No JVD Chest: Clear to auscultation B/L CV: S1 + S2 audible without murmur, gallop or rub Abd: soft, NT, Non-distended, BS + Ext: No edema Skin: No purpura, bruising or rash Rheumatologic: No Joint deformities Neurologic: Strength 5/5 all extremities, no gross sensory deficits Results - Labs CBC & BMP: 11/24/16 05:23 11/24/16 05:23 - Impressions Assessment and Plan SIRS (systemic inflammatory response syndrome) due to chin cellulitis Status: Acute Assessment and plan: Better ,continue IV zosyn Current Visit: Yes Acute kidney injury/dehydration Status: Acute Assessment and plan: This is improved with IV fluid Current Visit: Yes Anemia of chronic disease Status: Acute Assessment and plan: She is being transfused today Current Visit: Yes Metastatic breast cancer Status: Chronic Assessment and plan: She was getting chemotherapy as an outpatient with Dr. Toya Pineda Current Visit: Yes Discharge plan to swing bed next week
[2016-11-24 19:51] LABS: Hematocrit 27.6 VOL% (35.7-47.0)
[2016-11-24] MEDS: ACETAMINOPHEN 325 MG TABLET PO PRN (23:47)
[2016-11-25] MEDS: PIPERACILLIN/TAZOBACTAM 3,375 MG in SODIUM CHLORIDE 0.9% 100 ML IV SCH ×2 (05:17→13:46)
[2016-11-25 06:42] LABS: Calcium 9.3 MG/DL (8.5-10.1); Magnesium 1.5 MG/DL (1.8-2.4); Osmolality,Calculated 274.7 MOS/KG (273-304); Potassium 3.6 MMOL/L (3.5-5.1)
[2016-11-25] MEDS: LOSARTAN 50 MG TABLET PO SCH (10:20)
[2016-11-25] MEDS: MULTIVITAMIN (CENTRUM) TABLET PO SCH (10:21)
[2016-11-25] MEDS: FUROSEMIDE 20 MG TABLET PO SCH (10:21)
[2016-11-25] MEDS: ENOXAPARIN 40 MG/0.4 ML SYRINGE SUBCUT SCH (10:21)
[2016-11-25] MEDS: MAGNESIUM OXIDE 400 MG TABLET PO SCH (10:21)
[2016-11-25] MEDS: LETROZOLE 2.5 MG TABLET PO SCH (10:21)
[2016-11-25] MEDS: ALLOPURINOL 100 MG TABLET PO SCH (10:21)
[2016-11-25] MEDS: LACTOBACILLUS ACIDOPHILUS/BULGARICUS CAPLET PO SCH (10:21)
[2016-11-25] MEDS: DESITIN 4OZ/NYSTATIN 15 GRAM MIXTURE PASTE TOP SCH (10:47)
[2016-11-25] MEDS: POTASSIUM CHLORIDE 20 MEQ/15 ML UDCUP PER TUBE PRN (10:51)
[2016-11-25] MEDS ORDERED: cephALEXin 500 MG CAPSULE PO SCH (11:00)
--- NOTE | 2016-11-25 11:00 | Discharge Summary ---
Hospital Course - Hospital Course Hospital Course: 81 year old female with a history of Breast CA with mets to liver and sternum, Oral CA (tongue), HTN, OA, and Gout who presented to the ED with complaints of progressive lethargy. Her daughter reported that pt was normally very talkative and interactive, but she has been increasingly lethargic. She was very difficult to arouse and wouldn't eat or drink anything. The daughter reports that 2 weeks ago, the patient had a 1 week episode of diarrhea. The diarrhea resolved, but the patient has been unwilling to eat much since for fear of returning diarrhea. In the ED, she was found to have a WBC count of 20.9 and a temp of 99.6. CT of head and abdomen/pelvis showed no acute findings. The patient has been taking chemo treatments with Kadcyla every 3 weeks for breast cancer. Her last treatment was 3 weeks ago, and her next should be on 11/19/16 which is treatment 3 of 5. 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 She has been taking the ceftin since March. She was admitted to the hospital service. Patient was significantly dehydrated. She was started on IV fluids and IV Zosyn and other supportive treatment continue. With this treatment she started taking up and gradually return to her normal mental status. Leukocytosis also improved. Blood cultures remain negative. 1 of 2 blood cultures bottles grew Staphylococcus hominis, which was felt to be contaminant from the skin commensal. The other blood culture bottle was negative, repeat blood cultures remained negative. She was quite deconditioned and physical therapy was ordered. It was felt that patient would benefit from rehab, social welfare clerk was consulted and now she has a bed at the swing bed. She is otherwise back to her normal self has no further fever and is felt that she has reached maximum hospital benefit. She is being discharged to swing bed in improved and stable condition on oral antibiotic Keflex. The family is agreeable to this plan. Total discharge time was 45 minutes - Time spent with patient Time with patient DS: Greater than 30 minutes Diagnosis - Discharge Diagnosis (1) SIRS (systemic inflammatory response syndrome) Status: Resolved Discharge Plan - Discharge Data Disposition: Swing Bed, Hos Based, [facility] Condition at Discharge: Stable Discharge Diet: advance to your usual diet, other Activity: as per physical therapy Hygiene: no restrictions Weight Bearing at Discharge: full weight bearing Contact your physician if you experience:: fever over 101, Nausea/Vomiting, Shortness of breath - Discharge Medications New Cephalexin Liquid [Keflex Liquid] 500 mg PO BID #1 bottle Furosemide Tab [Lasix Tab] 20 mg PO DAILY #30 tablet Lactobacillus Acidoph/Bulgar [Bacid] 2 caplet PO DAILY #30 caplet Lidocaine 2% Viscous [Xylocaine 2% Viscous] 15 ml SWISH/SPIT Q4H PRN #7 ml PRN Reason: Mouth Irritation Loperamide Cap [Imodium Cap] 2 mg PO Q6H PRN #30 capsule PRN Reason: Diarrhea Potassium Bicarb Effervescent [K Lyte] 25 meq PO DAILY #30 tablet Cyproheptadine Tab [Periactin Tab] 2 mg PO TID #30 tablet Magnesium Oxide 400 mg PO BID #60 tablet Continue Multivit-Min/FA/Lycopen/Lutein [Centrum Silver Tablet] 1 each PO DAILY Allopurinol 100 mg PO DAILY Losartan Potassium [Cozaar] 100 mg PO DAILY Letrozole 2.5 mg PO DAILY Cholecalciferol (Vitamin D3) [Vitamin D3] 50,000 unit PO DAILY Discontinued cloNIDine HCl [Clonidine HCl] 0.1 mg PO DAILY PRN PRN Reason: Hypertension Cefuroxime Tab [Ceftin] 500 mg PO BID - Follow Up or Referral - Forms/Instructions Exam - Constitutional Vitals: Period Temp Pulse Resp BP Sys/Gallo Pulse Ox Last 24 Hr 98 F-99.0 F 68-80 16-20 129-148/48-79 95-99 Exam: General: No Acute Distress HEENT: Poor dentition Neck: Supple, No JVD Chest: Clear to auscultation B/L CV: S1 + S2 audible without murmur, gallop or rub Abd: soft, NT, Non-distended, BS + Ext: No edema Skin: No purpura, bruising or rash Rheumatologic: No Joint deformities Neurologic: Awake and alert Discharge Results Labs on day of discharge: Labs from last 24 hours 11/25/16 11/24/16 11/24/16 05:07 19:41 05:18 Hgb 9.0 L Hct 27.6 L Sodium 138 Potassium 3.6 Chloride 106 Carbon Dioxide 24 Anion Gap 11.6 BUN 15 Creatinine 1.30 H GFR Calculation 45 BUN/Creatinine Ratio 11.00 Glucose 74 Calculated Osmolality 274.7 Calcium 9.3 Magnesium 1.5 L Blood Type O POSITIVE Antibody Screen Negative Crossmatch See Detail DS: Provider Date of admission: 11/17/16 00:48 Primary care physician: . No PCP Attending physician on admission: Kodi Carcamo MD Consults: 11/17/16 02:35 Consult to Dietitian [CONS] Routine Reason for Dietitian: Diet Recommendations 11/18/16 12:57 Consult to Wound Care - [place] [CONS] Routine Reason for Wound Care: Wound Care Management 11/18/16 16:23 Consult to Case Mgmt/Social Srvs [CONS] Routine Reason for Case Mgmt/Social Srvs: Swingbed/SNF/Care Home Consult Comment: Requesting swing bed placement 11/19/16 19:03 Consult to Physical Therapy [CONS] Routine Reason for Physical Therapy: Evaluate and Treat 11/20/16 09:12 Consult to Occupational Therapy [CONS] Routine Reason for Occupational Therapy: Evaluate and Treat 11/21/16 08:15 Consult to Wound Care - [place] [CONS] Routine Reason for Wound Care: Wound Care Management Consult Comment: open area to right side of chin Discharging clinician: Shine Pickard MD
[2016-11-25 11:07] VITALS: BP 141/61
[2016-11-25] MEDS: CYPROHEPTADINE 4 MG TABLET PO SCH (11:19)
[2016-11-25] MEDS: LIDOCAINE 2% VISCOUS 100 ML BOTTLE SWISH/SPIT PRN ×2 (11:20→11:26)
== END 2016-11-25 15:23 | DRG 682 ==
LOC: N.ED 20:03 → SUATTDRO 11-17 00:48 → N.CVR 11-17 00:48 → N.5E 11-17 01:51
PROVIDERS: ADMIT Internal Medicine; ATTEND Hospitalist

== ENCOUNTER 2016-12-27 10:13 | Inpatient (IN) ==
[2016-12-27] MEDS ORDERED: SODIUM CHLORIDE 0.9% 1,000 ML IV STA (10:35)
[2016-12-27 11:01] LABS: Basophils % 0.1 % (0.0-0.8); Hematocrit 28.7 VOL% (35.7-47.0); Hemoglobin 9.8 GM/DL (12.0-16.0); Immature Granulocytes % 2.3 %; Immature Granulocytes Absolute 0.77 #; Lymphocytes # 1.9 10*3/uL (1.4-4.0); Lymphocytes % 5.6 % (21.3-54.2); Mean Corpuscular HGB Conc 34.1 GM/DL (32-36); Mean Corpuscular Hemoglobin 28 PG (27-34); Mean Corpuscular Volume 81.8 FL (87-102); Mean Platelet Volume 12.3 FL (9.6-12.0); Monocytes # 2.4 10*3/uL (0.11-0.8); Monocytes % 7.3 % (1.7-12.7); Neutrophils # 28.5 10*3/uL (1.4-7.4); Neutrophils % 84.7 % (38.7-73.9); Platelet Count 157 T/CUMM (130-400); Red Blood Count 3.51 MC/CUMM (3.8-5.5); Red Cell Distribution Width 16.6 % (9.3-17.3); White Blood Count 33.6 T/CUMM (4-12)
[2016-12-27 11:16] LABS: Apearance,Urine CLOUDY (Clear); Bilirubin,Urine Negative (Negative); Blood, Urine Negative (Negative); Glucose,Urine (UA) Negative (Negative); Ketones,Urine Negative (Negative); Nitrite,Urine Negative (Negative); Protein,Urine 100 MG/DL; RBC,Urine 1 /HPF (0-4); Urine Color Amber (Yellow); Urine Specific Gravity 1.019 (1.001-1.035); WBC,Urine 1 /HPF (0-6)
[2016-12-27 11:19] LABS: Ammonia < 10 UMOL/L (11-32)
[2016-12-27 11:30] LABS: Alanine Aminotransferase 24 U/L (13-56); Albumin 2.2 G/DL (3.4-5.0); Alkaline Phosphatase 226 U/L (45-117); Aspartate Amino Transferase 202 U/L (0-37); Blood Urea Nitrogen 47 MG/DL (7-18); Calcium 10.1 MG/DL (8.5-10.1); Glucose 77 MG/DL (74-106); Magnesium 1.4 MG/DL (1.8-2.4); Osmolality,Calculated 291.3 MOS/KG (273-304); Potassium 2.9 MMOL/L (3.5-5.1); Sodium 141 MMOL/L (136-145); Total Protein 7.3 G/DL (6.4-8.3)
[2016-12-27] MEDS ORDERED: cefTRIAXone 1,000 MG in SODIUM CHLORIDE 0.9% 100 ML IV STA (12:23)
[2016-12-27] MEDS ORDERED: cefTRIAXone 1,000 MG VIAL ONE (12:51)
[2016-12-27] MEDS ORDERED: ONDANSETRON 4 MG/2 ML VIAL IV STA (13:11)
[2016-12-27 13:45] LABS: Band Neutrophils 1 % (0-10); Lymphocytes 5 % (20-55); Macrocytosis 1+; Segmented Neutrophils 87 % (50-85); Total Cells Counted 100
[2016-12-27 13:46] LABS: Burr Cells 2+; Platelet Estimate Adequate; Polychromasia Slight; Target Cells Slight
[2016-12-27] MEDS ORDERED: ONDANSETRON 4 MG/2 ML VIAL ONE (14:21)
[2016-12-27] MEDS ORDERED: SODIUM CHLORIDE 0.9% 1,800 ML IV ONE (15:12)
[2016-12-27] MEDS: SODIUM CHLORIDE 0.9% 1,000 ML IV SCH (19:39)
[2016-12-27] MEDS ORDERED: MORPHINE 2 MG/1 ML SYRINGE IV ONE (19:56)
[2016-12-27] MEDS: AMPICILLIN INJ 2,000 MG in SODIUM CHLORIDE 0.9% 50 ML IV SCH (20:37)
[2016-12-27] MEDS: ACYCLOVIR INJ 1,000 MG in SODIUM CHLORIDE 0.9% 250 ML IV SCH (21:40)
[2016-12-27] MEDS: VANCOMYCIN INJ 1,000 MG in SODIUM CHLORIDE 0.9% 250 ML IV SCH (23:49)
[2016-12-28] MEDS: AMPICILLIN INJ 2,000 MG in SODIUM CHLORIDE 0.9% 50 ML IV SCH ×4 (02:59→20:31)
[2016-12-28 04:11] LABS: Basophils % 0.1 % (0.0-0.8); Hematocrit 26.8 VOL% (35.7-47.0); Hemoglobin 9.2 GM/DL (12.0-16.0); Immature Granulocytes % 1.2 %; Immature Granulocytes Absolute 0.29 #; Lymphocytes # 2.5 10*3/uL (1.4-4.0); Lymphocytes % 9.9 % (21.3-54.2); Mean Corpuscular HGB Conc 34.3 GM/DL (32-36); Mean Corpuscular Hemoglobin 28 PG (27-34); Mean Corpuscular Volume 81.7 FL (87-102); Mean Platelet Volume 12.8 FL (9.6-12.0); Monocytes # 1.5 10*3/uL (0.11-0.8); Neutrophils # 20.6 10*3/uL (1.4-7.4); Neutrophils % 82.8 % (38.7-73.9); Platelet Count 176 T/CUMM (130-400); Red Blood Count 3.28 MC/CUMM (3.8-5.5); Red Cell Distribution Width 16.8 % (9.3-17.3); White Blood Count 24.9 T/CUMM (4-12)
[2016-12-28 04:42] LABS: Albumin 1.9 G/DL (3.4-5.0); Bilirubin,Total 0.8 MG/DL (0.2-1.0); Calcium 8.5 MG/DL (8.5-10.1); Osmolality,Calculated 298.7 MOS/KG (273-304); Potassium 3.2 MMOL/L (3.5-5.1); Total Protein 5.6 G/DL (6.4-8.3)
[2016-12-28] MEDS: SODIUM CHLORIDE 0.9% 1,000 ML IV SCH (05:26)
[2016-12-28 06:09] LABS: Anisocytosis 1+; Lymphocytes 14 % (20-55); Myelocytes 2 %; Platelet Estimate Normal; Segmented Neutrophils 80 % (50-85); Total Cells Counted 100
[2016-12-28] MEDS: ACYCLOVIR INJ 1,000 MG in SODIUM CHLORIDE 0.9% 250 ML IV SCH ×3 (06:26→21:18)
[2016-12-28] MEDS: DEXTROSE 5% NACL 0.45% 1,000 ML IV SCH ×2 (11:00→21:15)
[2016-12-29] MEDS: AMPICILLIN INJ 2,000 MG in SODIUM CHLORIDE 0.9% 50 ML IV SCH ×4 (02:05→20:48)
[2016-12-29] MEDS: DEXTROSE 5% NACL 0.45% 1,000 ML IV SCH ×2 (02:58→06:45)
[2016-12-29] MEDS: ACYCLOVIR INJ 1,000 MG in SODIUM CHLORIDE 0.9% 250 ML IV SCH ×3 (05:35→21:58)
[2016-12-29 06:14] LABS: Basophils % 0.1 % (0.0-0.8); Eosinophils % 0.1 % (0.00-10.9); Hematocrit 26.8 VOL% (35.7-47.0); Hemoglobin 9.4 GM/DL (12.0-16.0); Immature Granulocytes % 0.6 %; Immature Granulocytes Absolute 0.11 #; Lymphocytes # 2.9 10*3/uL (1.4-4.0); Lymphocytes % 16.6 % (21.3-54.2); Mean Corpuscular HGB Conc 35.1 GM/DL (32-36); Mean Corpuscular Hemoglobin 28 PG (27-34); Mean Platelet Volume 11.8 FL (9.6-12.0); Monocytes # 1.2 10*3/uL (0.11-0.8); Neutrophils # 13.4 10*3/uL (1.4-7.4); Neutrophils % 75.6 % (38.7-73.9); Platelet Count 182 T/CUMM (130-400); Red Blood Count 3.35 MC/CUMM (3.8-5.5); Red Cell Distribution Width 16.7 % (9.3-17.3); White Blood Count 17.6 T/CUMM (4-12)
[2016-12-29 06:43] LABS: Calcium 8.3 MG/DL (8.5-10.1); Osmolality,Calculated 313.3 MOS/KG (273-304)
[2016-12-29] MEDS ORDERED: SODIUM CHLORIDE 0.9% 1,000 ML IV SCH (09:00)
[2016-12-29] MEDS: DEXT 5% NACL 0.2% KCL 20 MEQ 20 MEQ/1,000 ML BAG IV SCH ×2 (13:39→22:51)
[2016-12-29] MEDS: VANCOMYCIN INJ 1,000 MG in SODIUM CHLORIDE 0.9% 250 ML IV SCH (23:44)
[2016-12-30] MEDS: AMPICILLIN INJ 2,000 MG in SODIUM CHLORIDE 0.9% 50 ML IV SCH ×3 (02:19→17:09)
[2016-12-30 05:18] LABS: Basophils % 0.2 % (0.0-0.8); Eosinophils % 0.1 % (0.00-10.9); Hematocrit 26.1 VOL% (35.7-47.0); Hemoglobin 9.1 GM/DL (12.0-16.0); Immature Granulocytes % 0.9 %; Immature Granulocytes Absolute 0.14 #; Lymphocytes # 2.3 10*3/uL (1.4-4.0); Lymphocytes % 14.4 % (21.3-54.2); Mean Corpuscular HGB Conc 34.9 GM/DL (32-36); Mean Corpuscular Hemoglobin 28 PG (27-34); Mean Corpuscular Volume 79.6 FL (87-102); Mean Platelet Volume 12.9 FL (9.6-12.0); Monocytes # 1.3 10*3/uL (0.11-0.8); Monocytes % 8.2 % (1.7-12.7); NRBC # 0.03 10*3/uL; Neutrophils # 12.4 10*3/uL (1.4-7.4); Neutrophils % 76.2 % (38.7-73.9); Platelet Count 201 T/CUMM (130-400); Red Blood Count 3.28 MC/CUMM (3.8-5.5); Red Cell Distribution Width 16.6 % (9.3-17.3); White Blood Count 16.3 T/CUMM (4-12)
[2016-12-30] MEDS: ACYCLOVIR INJ 1,000 MG in SODIUM CHLORIDE 0.9% 250 ML IV SCH ×2 (05:20→14:50)
[2016-12-30 05:47] LABS: Calcium 7.9 MG/DL (8.5-10.1); Osmolality,Calculated 310.1 MOS/KG (273-304)
[2016-12-30] MEDS: DEXT 5% NACL 0.2% KCL 20 MEQ 20 MEQ/1,000 ML BAG IV SCH (09:34)
[2016-12-30] MEDS ORDERED: LORazepam 2 MG/1 ML VIAL IV ONE (10:54)
[2016-12-30] MEDS ORDERED: DEXTROSE 5% NACL 0.45% 1,000 ML IV SCH (16:30)
[2016-12-30] MEDS ORDERED: POTASSIUM CHLORIDE RIDER 10 MEQ in PREMIX 1 EACH IV SCH (16:30)
[2016-12-30] MEDS: POTASSIUM CHLORIDE INJ 20 MEQ in DEXTROSE 5% NACL 0.22% 1,000 ML IV SCH (17:10)
[2016-12-30] MEDS: SODIUM CHLORIDE 0.9% IV SCH (18:10)
[2016-12-30] MEDS: ACYCLOVIR IV SCH (18:10)
[2016-12-30] MEDS: LORazepam 2 MG/1 ML VIAL IV PRN (20:23)
[2016-12-31] MEDS: AMPICILLIN INJ 2,000 MG in SODIUM CHLORIDE 0.9% 50 ML IV SCH ×3 (00:10→16:55)
[2016-12-31] MEDS: POTASSIUM CHLORIDE INJ 20 MEQ in DEXTROSE 5% NACL 0.22% 1,000 ML IV SCH ×5 (01:39→23:01)
[2016-12-31 06:42] LABS: Basophils % 0.2 % (0.0-0.8); Eosinophils # 0.1 10*3/uL (0.0-0.87); Eosinophils % 0.7 % (0.00-10.9); Hematocrit 27.1 VOL% (35.7-47.0); Hemoglobin 9.5 GM/DL (12.0-16.0); Immature Granulocytes % 0.8 %; Lymphocytes # 2.5 10*3/uL (1.4-4.0); Lymphocytes % 19.9 % (21.3-54.2); Mean Corpuscular HGB Conc 35.1 GM/DL (32-36); Mean Corpuscular Hemoglobin 28 PG (27-34); Mean Platelet Volume 12.5 FL (9.6-12.0); Monocytes % 7.6 % (1.7-12.7); NRBC # 0.02 10*3/uL; Neutrophils # 8.9 10*3/uL (1.4-7.4); Neutrophils % 70.8 % (38.7-73.9); Platelet Count 206 T/CUMM (130-400); Red Blood Count 3.43 MC/CUMM (3.8-5.5); Red Cell Distribution Width 16.6 % (9.3-17.3); White Blood Count 12.6 T/CUMM (4-12)
[2016-12-31 07:10] LABS: Calcium 7.8 MG/DL (8.5-10.1); Potassium 3.1 MMOL/L (3.5-5.1)
[2016-12-31] MEDS: POTASSIUM CHLORIDE RIDER 10 MEQ in PREMIX 1 EACH IV SCH ×2 (10:32→12:40)
[2016-12-31 12:04] LABS: Basophils % 0.1 % (0.0-0.8); Basophils % 0.2 % (0.0-0.8); Eosinophils # 0.1 10*3/uL (0.0-0.87); Eosinophils % 0.7 % (0.00-10.9); Eosinophils % 0.8 % (0.00-10.9); Hematocrit 27.6 VOL% (35.7-47.0); Hematocrit 27.7 VOL% (35.7-47.0); Hemoglobin 9.6 GM/DL (12.0-16.0); Immature Granulocytes % 0.8 %; Immature Granulocytes % 0.9 %; Immature Granulocytes Absolute 0.11 #; Lymphocytes # 2.6 10*3/uL (1.4-4.0); Lymphocytes # 2.7 10*3/uL (1.4-4.0); Lymphocytes % 20.2 % (21.3-54.2); Lymphocytes % 21.5 % (21.3-54.2); Mean Corpuscular HGB Conc 34.7 GM/DL (32-36); Mean Corpuscular HGB Conc 34.8 GM/DL (32-36); Mean Corpuscular Hemoglobin 27 PG (27-34); Mean Corpuscular Hemoglobin 28 PG (27-34); Mean Corpuscular Volume 78.7 FL (87-102); Mean Corpuscular Volume 79.1 FL (87-102); Mean Platelet Volume 12.8 FL (9.6-12.0); Mean Platelet Volume 13.2 FL (9.6-12.0); Monocytes # 0.9 10*3/uL (0.11-0.8); Monocytes % 7.3 % (1.7-12.7); Monocytes % 7.7 % (1.7-12.7); NRBC # 0.03 10*3/uL; Neutrophils # 8.6 10*3/uL (1.4-7.4); Neutrophils # 8.9 10*3/uL (1.4-7.4); Neutrophils % 69.4 % (38.7-73.9); Neutrophils % 70.4 % (38.7-73.9); Platelet Count 211 T/CUMM (130-400); Platelet Count 219 T/CUMM (130-400); Red Blood Count 3.49 MC/CUMM (3.8-5.5); Red Blood Count 3.52 MC/CUMM (3.8-5.5); Red Cell Distribution Width 16.7 % (9.3-17.3); Red Cell Distribution Width 16.8 % (9.3-17.3); White Blood Count 12.4 T/CUMM (4-12); White Blood Count 12.7 T/CUMM (4-12)
[2016-12-31] MEDS: LORazepam 2 MG/1 ML VIAL IV PRN (12:32)
[2016-12-31 12:35] LABS: Albumin 1.8 G/DL (3.4-5.0); Bilirubin,Total 0.8 MG/DL (0.2-1.0); Calcium 8.1 MG/DL (8.5-10.1); Potassium 3.3 MMOL/L (3.5-5.1); Total Protein 5.4 G/DL (6.4-8.3)
[2016-12-31 12:45] LABS: Albumin 1.8 G/DL (3.4-5.0); Bilirubin,Total 0.9 MG/DL (0.2-1.0); Calcium 8.1 MG/DL (8.5-10.1); Potassium 3.4 MMOL/L (3.5-5.1); Total Protein 5.4 G/DL (6.4-8.3)
[2016-12-31] MEDS ORDERED: POTASSIUM CHLORIDE 20 MEQ TABLET PO ONE (13:39)
[2016-12-31 14:30] LABS: Glucose,CSF 46 MG/DL (40-70)
[2016-12-31 15:01] LABS: Appearance,CSF Clear; Lymphocytes,CSF 20 %; Monocytes,CSF 30 %; Neutrophils,CSF 50 %; Red Blood Cell,CSF 576 C/CUMM; White Blood Cell,CSF 6 C/CUMM
[2016-12-31] MEDS: MORPHINE 2 MG/1 ML SYRINGE IV PRN (16:05)
[2016-12-31] MEDS: SODIUM CHLORIDE 0.9% IV SCH (18:09)
[2016-12-31] MEDS: ACYCLOVIR IV SCH (18:09)
[2016-12-31] MEDS: ZINC OXIDE PASTE 113 GM TUBE TOP SCH ×2 (18:14→21:50)
[2016-12-31] MEDS: VANCOMYCIN INJ 1,000 MG in SODIUM CHLORIDE 0.9% 250 ML IV SCH (22:55)
[2017-01-01] MEDS: AMPICILLIN INJ 2,000 MG in SODIUM CHLORIDE 0.9% 50 ML IV SCH ×2 (01:55→09:17)
[2017-01-01 07:20] LABS: Basophils % 0.2 % (0.0-0.8); Eosinophils % 0.3 % (0.00-10.9); Hematocrit 30.6 VOL% (35.7-47.0); Hemoglobin 10.3 GM/DL (12.0-16.0); Immature Granulocytes Absolute 0.12 #; Lymphocytes % 17.3 % (21.3-54.2); Mean Corpuscular HGB Conc 33.7 GM/DL (32-36); Mean Corpuscular Hemoglobin 28 PG (27-34); Monocytes # 0.9 10*3/uL (0.11-0.8); Monocytes % 7.9 % (1.7-12.7); NRBC # 0.07 10*3/uL; Neutrophils # 8.4 10*3/uL (1.4-7.4); Neutrophils % 73.3 % (38.7-73.9); Platelet Count 155 T/CUMM (130-400); Red Blood Count 3.73 MC/CUMM (3.8-5.5); Red Cell Distribution Width 17.1 % (9.3-17.3); White Blood Count 11.5 T/CUMM (4-12)
[2017-01-01 07:24] LABS: Calcium 8.1 MG/DL (8.5-10.1); Osmolality,Calculated 304.3 MOS/KG (273-304); Potassium 3.7 MMOL/L (3.5-5.1)
[2017-01-01] MEDS: ZINC OXIDE PASTE 113 GM TUBE TOP SCH ×2 (09:38→21:26)
[2017-01-01] MEDS: POTASSIUM CHLORIDE INJ 20 MEQ in DEXTROSE 5% NACL 0.22% 1,000 ML IV SCH (11:27)
[2017-01-01] MEDS: LORazepam 2 MG/1 ML VIAL IV PRN (13:59)
[2017-01-01] MEDS: DEXT 5% NACL 0.2% KCL 20 MEQ 20 MEQ/1,000 ML BAG IV SCH (19:41)
[2017-01-02] MEDS: LORazepam 2 MG/1 ML VIAL IV PRN (01:39)
[2017-01-02] MEDS: DEXT 5% NACL 0.2% KCL 20 MEQ 20 MEQ/1,000 ML BAG IV SCH ×3 (04:06→23:07)
[2017-01-02] MEDS ORDERED: VANCOMYCIN INJ 1,000 MG in SODIUM CHLORIDE 0.9% 250 ML IV SCH (09:00)
[2017-01-02] MEDS: ZINC OXIDE PASTE 113 GM TUBE TOP SCH ×2 (10:58→21:05)
[2017-01-02 13:45] LABS: CMV PCR Source CSF
[2017-01-02 13:46] LABS: Epstein-Barr Virus Result Negative (Negative); Epstein-Barr Virus Source CSF
[2017-01-02 13:48] LABS: Specimen Source CSF
[2017-01-02 14:01] LABS: VDRL Spinal Fluid Negative (Negative)
[2017-01-02 23:26] LABS: Enterovirus PCR Source CSF
[2017-01-03] MEDS: DEXT 5% NACL 0.2% KCL 20 MEQ 20 MEQ/1,000 ML BAG IV SCH ×3 (02:17→21:51)
[2017-01-03 05:03] LABS: Basophils % 0.1 % (0.0-0.8); Eosinophils # 0.1 10*3/uL (0.0-0.87); Eosinophils % 1.2 % (0.00-10.9); Hematocrit 25.6 VOL% (35.7-47.0); Hemoglobin 8.9 GM/DL (12.0-16.0); Immature Granulocytes % 1.5 %; Immature Granulocytes Absolute 0.13 #; Lymphocytes # 2.7 10*3/uL (1.4-4.0); Lymphocytes % 30.9 % (21.3-54.2); Mean Corpuscular HGB Conc 34.8 GM/DL (32-36); Mean Corpuscular Hemoglobin 28 PG (27-34); Mean Platelet Volume 13.8 FL (9.6-12.0); Monocytes # 0.8 10*3/uL (0.11-0.8); Monocytes % 8.7 % (1.7-12.7); NRBC # 0.09 10*3/uL; Neutrophils # 5.1 10*3/uL (1.4-7.4); Neutrophils % 57.6 % (38.7-73.9); Platelet Count 228 T/CUMM (130-400); Red Cell Distribution Width 16.5 % (9.3-17.3); White Blood Count 8.8 T/CUMM (4-12)
[2017-01-03 05:22] LABS: Calcium 8.3 MG/DL (8.5-10.1); Osmolality,Calculated 288.8 MOS/KG (273-304); Potassium 4.1 MMOL/L (3.5-5.1)
[2017-01-03 05:30] LABS: Magnesium 1.3 MG/DL (1.8-2.4); Phosphorous 2.7 MG/DL (2.5-4.9); Prealbumin 4.1 MG/DL (20-40)
[2017-01-03] MEDS: ZINC OXIDE PASTE 113 GM TUBE TOP SCH ×2 (07:55→20:40)
[2017-01-03 15:16] LABS: Adenovirus PCR Negative (Negative); Specimen Source CSF
[2017-01-03 16:06] LABS: West Nile Virus Ab, IgG, CSF Negative (Negative); West Nile Virus Ab, IgM, CSF Negative (Negative)
[2017-01-04] MEDS: MORPHINE 2 MG/1 ML SYRINGE IV PRN (00:04)
[2017-01-04] MEDS: ZINC OXIDE PASTE 113 GM TUBE TOP SCH ×2 (12:12→21:35)
[2017-01-04] MEDS: DEXT 5% NACL 0.2% KCL 20 MEQ 20 MEQ/1,000 ML BAG IV SCH (13:07)
[2017-01-05] MEDS: ZINC OXIDE PASTE 113 GM TUBE TOP SCH ×2 (16:20→20:38)
[2017-01-06] MEDS: MORPHINE 2 MG/1 ML SYRINGE IV PRN (01:55)
[2017-01-06 04:53] LABS: Basophils % 0.3 % (0.0-0.8); Eosinophils # 0.1 10*3/uL (0.0-0.87); Eosinophils % 0.6 % (0.00-10.9); Hemoglobin 9.2 GM/DL (12.0-16.0); Immature Granulocytes % 1.1 %; Immature Granulocytes Absolute 0.16 #; Lymphocytes # 5.6 10*3/uL (1.4-4.0); Lymphocytes % 39.2 % (21.3-54.2); Mean Corpuscular HGB Conc 34.1 GM/DL (32-36); Mean Corpuscular Hemoglobin 28 PG (27-34); Mean Corpuscular Volume 81.3 FL (87-102); Mean Platelet Volume 13.6 FL (9.6-12.0); Monocytes # 1.1 10*3/uL (0.11-0.8); Neutrophils # 7.3 10*3/uL (1.4-7.4); Neutrophils % 50.8 % (38.7-73.9); Platelet Count 248 T/CUMM (130-400); Red Blood Count 3.32 MC/CUMM (3.8-5.5); Red Cell Distribution Width 18.8 % (9.3-17.3); White Blood Count 14.3 T/CUMM (4-12)
[2017-01-06 05:21] LABS: Calcium 9.3 MG/DL (8.5-10.1); Osmolality,Calculated 281.3 MOS/KG (273-304); Potassium 4.9 MMOL/L (3.5-5.1)
[2017-01-06] MEDS: ZINC OXIDE PASTE 113 GM TUBE TOP SCH ×2 (09:25→21:14)
[2017-01-07] MEDS: ZINC OXIDE PASTE 113 GM TUBE TOP SCH ×2 (08:54→20:10)
[2017-01-08 03:43] LABS: Basophils % 0.3 % (0.0-0.8); Eosinophils # 0.1 10*3/uL (0.0-0.87); Eosinophils % 0.4 % (0.00-10.9); Hematocrit 24.1 VOL% (35.7-47.0); Hemoglobin 8.1 GM/DL (12.0-16.0); Immature Granulocytes % 0.5 %; Immature Granulocytes Absolute 0.06 #; Lymphocytes # 2.8 10*3/uL (1.4-4.0); Lymphocytes % 24.4 % (21.3-54.2); Mean Corpuscular HGB Conc 33.6 GM/DL (32-36); Mean Corpuscular Hemoglobin 28 PG (27-34); Mean Corpuscular Volume 82.5 FL (87-102); Mean Platelet Volume 13.4 FL (9.6-12.0); Monocytes # 1.2 10*3/uL (0.11-0.8); Monocytes % 10.1 % (1.7-12.7); Neutrophils # 7.4 10*3/uL (1.4-7.4); Neutrophils % 64.3 % (38.7-73.9); Platelet Count 187 T/CUMM (130-400); Red Blood Count 2.92 MC/CUMM (3.8-5.5); Red Cell Distribution Width 18.9 % (9.3-17.3); White Blood Count 11.5 T/CUMM (4-12)
[2017-01-08 04:21] LABS: Calcium 9.2 MG/DL (8.5-10.1); Osmolality,Calculated 279.5 MOS/KG (273-304); Potassium 4.6 MMOL/L (3.5-5.1)
[2017-01-08] MEDS: ZINC OXIDE PASTE 113 GM TUBE TOP SCH ×2 (08:40→20:55)
[2017-01-08] MEDS ORDERED: PHENOL 1.4% THROAT SPRAY 177 ML BOTTLE PO PRN (08:59)
[2017-01-09 07:55] LABS: Basophils % 0.2 % (0.0-0.8); Eosinophils % 0.2 % (0.00-10.9); Hematocrit 23.8 VOL% (35.7-47.0); Hemoglobin 8.1 GM/DL (12.0-16.0); Immature Granulocytes % 0.5 %; Immature Granulocytes Absolute 0.08 #; Lymphocytes # 3.1 10*3/uL (1.4-4.0); Lymphocytes % 18.5 % (21.3-54.2); Mean Corpuscular Hemoglobin 29 PG (27-34); Mean Corpuscular Volume 83.8 FL (87-102); Mean Platelet Volume 13.7 FL (9.6-12.0); Monocytes # 1.9 10*3/uL (0.11-0.8); Monocytes % 11.2 % (1.7-12.7); Neutrophils # 11.5 10*3/uL (1.4-7.4); Neutrophils % 69.4 % (38.7-73.9); Platelet Count 187 T/CUMM (130-400); Red Blood Count 2.84 MC/CUMM (3.8-5.5); Red Cell Distribution Width 19.9 % (9.3-17.3); White Blood Count 16.6 T/CUMM (4-12)
[2017-01-09 08:02] LABS: INR 1.1; PT Patient Result 11.7 SECS
[2017-01-09 08:26] LABS: Calcium 9.2 MG/DL (8.5-10.1); Magnesium 1.6 MG/DL (1.8-2.4); Osmolality,Calculated 276.7 MOS/KG (273-304); Phosphorous 3.2 MG/DL (2.5-4.9); Potassium 4.7 MMOL/L (3.5-5.1); Prealbumin 7.1 MG/DL (20-40)
[2017-01-09] MEDS: ZINC OXIDE PASTE 113 GM TUBE TOP SCH ×2 (08:32→20:50)
[2017-01-09] MEDS ORDERED: MAGNESIUM SULF RIDER 4 GM in PREMIX 1 EACH IV ONE (10:28)
[2017-01-09 11:38] LABS: Apearance,Urine CLEAR (Clear); Bilirubin,Urine Negative (Negative); Blood, Urine Negative (Negative); Glucose,Urine (UA) Negative (Negative); Ketones,Urine 5 mg/dL (Negative); Nitrite,Urine Negative (Negative); Protein,Urine Negative; RBC,Urine <1 /HPF (0-4); Squamous Epithelial Cell,Urine Occasional /HPF (0-10); Urine Color Yellow (Yellow); Urine Specific Gravity 1.013 (1.001-1.035); Urine Urobilinogen < 2.0 EU/DL (0.2-1.0); WBC,Urine 1 /HPF (0-6)
[2017-01-09] MEDS ORDERED: ceFAZolin 1,000 MG VIAL ONE (11:57)
[2017-01-09] MEDS ORDERED: SODIUM CHLORIDE 0.9% 100 ML IV ONE (11:58)
[2017-01-09] MEDS ORDERED: PROPOFOL 200 MG/20 ML VIAL IV ONE (12:01)
[2017-01-09] MEDS ORDERED: LIDOCAINE 2% 5 ML VIAL ONE (12:01)
[2017-01-09] MEDS ORDERED: MORPHINE 2 MG/1 ML SYRINGE IV PRN (14:03)
[2017-01-09] MEDS ORDERED: ZIPRASIDONE 20 MG/1 ML VIAL IM PRN (19:30)
[2017-01-09] MEDS: MEGESTROL 400 MG/10 ML UDCUP PO SCH (20:50)
[2017-01-10 05:30] LABS: Basophils % 0.2 % (0.0-0.8); Hematocrit 23.6 VOL% (35.7-47.0); Immature Granulocytes % 0.6 %; Lymphocytes # 2.6 10*3/uL (1.4-4.0); Lymphocytes % 14.2 % (21.3-54.2); Mean Corpuscular HGB Conc 33.9 GM/DL (32-36); Mean Corpuscular Hemoglobin 29 PG (27-34); Mean Platelet Volume 13.7 FL (9.6-12.0); Monocytes # 1.8 10*3/uL (0.11-0.8); Monocytes % 9.8 % (1.7-12.7); Neutrophils # 13.6 10*3/uL (1.4-7.4); Neutrophils % 75.2 % (38.7-73.9); Platelet Count 225 T/CUMM (130-400); Red Blood Count 2.81 MC/CUMM (3.8-5.5); Red Cell Distribution Width 20.5 % (9.3-17.3)
[2017-01-10 06:07] LABS: Calcium 9.6 MG/DL (8.5-10.1); Magnesium 2.6 MG/DL (1.8-2.4); Osmolality,Calculated 280.5 MOS/KG (273-304); Potassium 5.7 MMOL/L (3.5-5.1)
[2017-01-10] MEDS: LETROZOLE 2.5 MG TABLET PO SCH (11:26)
[2017-01-10] MEDS: ALLOPURINOL 100 MG TABLET PO SCH (11:26)
[2017-01-10] MEDS: FERROUS SULFATE 325 MG TABLET PO SCH (11:26)
[2017-01-10] MEDS: MEGESTROL 400 MG/10 ML UDCUP PO SCH ×2 (11:26→22:12)
[2017-01-10] MEDS: ZINC OXIDE PASTE 113 GM TUBE TOP SCH ×2 (11:26→22:12)
[2017-01-11 03:20] LABS: Basophils % 0.1 % (0.0-0.8); Eosinophils % 0.1 % (0.00-10.9); Hematocrit 22.1 VOL% (35.7-47.0); Hemoglobin 7.4 GM/DL (12.0-16.0); Immature Granulocytes % 0.5 %; Immature Granulocytes Absolute 0.09 #; Mean Corpuscular HGB Conc 33.5 GM/DL (32-36); Mean Corpuscular Hemoglobin 29 PG (27-34); Mean Platelet Volume 13.2 FL (9.6-12.0); Monocytes # 2.4 10*3/uL (0.11-0.8); Monocytes % 13.1 % (1.7-12.7); Neutrophils # 13.6 10*3/uL (1.4-7.4); Neutrophils % 75.2 % (38.7-73.9); Platelet Count 194 T/CUMM (130-400); Red Cell Distribution Width 20.3 % (9.3-17.3); White Blood Count 18.1 T/CUMM (4-12)
[2017-01-11 03:59] LABS: Calcium 9.4 MG/DL (8.5-10.1); Osmolality,Calculated 285.5 MOS/KG (273-304); Potassium 4.9 MMOL/L (3.5-5.1)
[2017-01-11] MEDS: MEGESTROL 400 MG/10 ML UDCUP PO SCH ×2 (09:06→21:22)
[2017-01-11] MEDS: FERROUS SULFATE 325 MG TABLET PO SCH (09:58)
[2017-01-11] MEDS: ZINC OXIDE PASTE 113 GM TUBE TOP SCH ×2 (09:58→20:45)
[2017-01-11] MEDS: ALLOPURINOL 100 MG TABLET PO SCH (09:58)
[2017-01-11] MEDS: LETROZOLE 2.5 MG TABLET PO SCH (09:58)
[2017-01-12] MEDS: ALLOPURINOL 100 MG TABLET PO SCH (08:41)
[2017-01-12] MEDS: FERROUS SULFATE 325 MG TABLET PO SCH (08:41)
[2017-01-12] MEDS: LETROZOLE 2.5 MG TABLET PO SCH (08:41)
[2017-01-12 11:00] LABS: Basophils % 0.1 % (0.0-0.8); Hematocrit 21.6 VOL% (35.7-47.0); Hemoglobin 7.2 GM/DL (12.0-16.0); Immature Granulocytes % 0.6 %; Immature Granulocytes Absolute 0.13 #; Lymphocytes # 2.7 10*3/uL (1.4-4.0); Lymphocytes % 13.2 % (21.3-54.2); Mean Corpuscular HGB Conc 33.3 GM/DL (32-36); Mean Corpuscular Hemoglobin 29 PG (27-34); Mean Corpuscular Volume 85.7 FL (87-102); Mean Platelet Volume 12.3 FL (9.6-12.0); Monocytes # 2.3 10*3/uL (0.11-0.8); Monocytes % 11.4 % (1.7-12.7); Neutrophils % 74.7 % (38.7-73.9); Platelet Count 187 T/CUMM (130-400); Red Blood Count 2.52 MC/CUMM (3.8-5.5); White Blood Count 20.2 T/CUMM (4-12)
[2017-01-12] MEDS: MEGESTROL 400 MG/10 ML UDCUP PO SCH ×2 (11:21→23:53)
[2017-01-12 11:27] LABS: Calcium 9.1 MG/DL (8.5-10.1); Osmolality,Calculated 288.4 MOS/KG (273-304); Potassium 4.6 MMOL/L (3.5-5.1)
[2017-01-12 12:57] LABS: Hypochromasia 1+; Lymphocytes 15 % (20-55); Macrocytosis 2+; Platelet Estimate Adequate; Segmented Neutrophils 73 % (50-85); Target Cells Slight; Total Cells Counted 100
[2017-01-12] MEDS: ZINC OXIDE PASTE 113 GM TUBE TOP SCH ×2 (13:14→23:53)
[2017-01-12] MEDS ORDERED: SODIUM CHLORIDE 0.9% 1,000 ML IV SCH (15:00)
[2017-01-12] MEDS ORDERED: SODIUM CHLORIDE 0.9% 250 ML IV PRN (15:00)
[2017-01-12] MEDS ORDERED: VANCOMYCIN INJ 1,000 MG in SODIUM CHLORIDE 0.9% 250 ML IV SCH (18:30)
[2017-01-12] MEDS: PIPERACILLIN/TAZOBACTAM 3,375 MG in SODIUM CHLORIDE 0.9% 100 ML IV SCH (18:42)
[2017-01-13] MEDS: PIPERACILLIN/TAZOBACTAM 3,375 MG in SODIUM CHLORIDE 0.9% 100 ML IV SCH ×3 (03:03→17:12)
[2017-01-13] MEDS: VANCOMYCIN INJ 1,000 MG in SODIUM CHLORIDE 0.9% 250 ML IV SCH (06:20)
[2017-01-13] MEDS: MEGESTROL 400 MG/10 ML UDCUP PO SCH ×2 (08:20→20:43)
[2017-01-13] MEDS: FERROUS SULFATE 325 MG TABLET PO SCH (08:32)
[2017-01-13] MEDS: ZINC OXIDE PASTE 113 GM TUBE TOP SCH ×2 (08:32→20:43)
[2017-01-13] MEDS: LETROZOLE 2.5 MG TABLET PO SCH (08:32)
[2017-01-13] MEDS: ALLOPURINOL 100 MG TABLET PO SCH (08:32)
[2017-01-13 10:00] LABS: Hematocrit 27.2 VOL% (35.7-47.0); Immature Granulocytes % 0.5 %
[2017-01-13 10:05] LABS: Basophils % 0.2 % (0.0-0.8); Immature Granulocytes Absolute 0.08 #; Mean Corpuscular Volume 86.1 FL (87-102)
[2017-01-13 10:14] LABS: Eosinophils % 0.1 % (0.00-10.9); Lymphocytes # 1.9 10*3/uL (1.4-4.0); Lymphocytes % 12.7 % (21.3-54.2); Mean Corpuscular HGB Conc 33.8 GM/DL (32-36); Mean Corpuscular Hemoglobin 29 PG (27-34); Mean Platelet Volume 12.4 FL (9.6-12.0); Monocytes # 1.7 10*3/uL (0.11-0.8); Monocytes % 11.2 % (1.7-12.7); Neutrophils # 11.5 10*3/uL (1.4-7.4); Neutrophils % 75.3 % (38.7-73.9); Platelet Count 177 T/CUMM (130-400); Red Cell Distribution Width 18.1 % (9.3-17.3); White Blood Count 15.3 T/CUMM (4-12)
[2017-01-13 10:15] LABS: Hemoglobin 9.2 GM/DL (12.0-16.0); Red Blood Count 3.16 MC/CUMM (3.8-5.5)
[2017-01-13 10:23] LABS: Calcium 8.8 MG/DL (8.5-10.1); Magnesium 2.2 MG/DL (1.8-2.4); Osmolality,Calculated 289.4 MOS/KG (273-304); Potassium 4.6 MMOL/L (3.5-5.1)
[2017-01-13 10:43] LABS: Hypochromasia 1+; Lymphocytes 16 % (20-55); Platelet Estimate Normal; Segmented Neutrophils 75 % (50-85); Total Cells Counted 100
[2017-01-13 10:44] LABS: Giant Platelets Few; Macrocytosis Slight
[2017-01-13 10:50] LABS: Prealbumin 3.1 MG/DL (20-40)
[2017-01-14] MEDS: PIPERACILLIN/TAZOBACTAM 3,375 MG in SODIUM CHLORIDE 0.9% 100 ML IV SCH ×3 (01:38→18:10)
[2017-01-14] MEDS: ZINC OXIDE PASTE 113 GM TUBE TOP SCH ×2 (12:45→21:50)
[2017-01-14] MEDS: LETROZOLE 2.5 MG TABLET PO SCH (13:30)
[2017-01-14] MEDS: ALLOPURINOL 100 MG TABLET PO SCH (13:31)
[2017-01-14] MEDS: FERROUS SULFATE 325 MG TABLET PO SCH (13:31)
[2017-01-14] MEDS: MEGESTROL 400 MG/10 ML UDCUP PO SCH ×2 (13:32→21:51)
[2017-01-14] MEDS: VANCOMYCIN INJ 1,000 MG in SODIUM CHLORIDE 0.9% 250 ML IV SCH (21:49)
[2017-01-14] MEDS: CHLORHEXIDINE 0.12% ORAL RINSE 60 ML BOTTLE SWISH/SPIT SCH (21:51)
[2017-01-15] MEDS: PIPERACILLIN/TAZOBACTAM 3,375 MG in SODIUM CHLORIDE 0.9% 100 ML IV SCH ×3 (02:06→20:08)
[2017-01-15] MEDS: ALLOPURINOL 100 MG TABLET PO SCH (11:52)
[2017-01-15] MEDS: LETROZOLE 2.5 MG TABLET PO SCH (11:52)
[2017-01-15] MEDS: FERROUS SULFATE 325 MG TABLET PO SCH (11:52)
[2017-01-15] MEDS: ZINC OXIDE PASTE 113 GM TUBE TOP SCH ×2 (12:23→22:28)
[2017-01-15] MEDS: MEGESTROL 400 MG/10 ML UDCUP PO SCH ×2 (12:23→22:28)
[2017-01-15] MEDS: CHLORHEXIDINE 0.12% ORAL RINSE 60 ML BOTTLE SWISH/SPIT SCH ×2 (19:53→22:28)
[2017-01-16] MEDS: PIPERACILLIN/TAZOBACTAM 3,375 MG in SODIUM CHLORIDE 0.9% 100 ML IV SCH ×2 (02:40→10:38)
[2017-01-16 05:47] LABS: Calcium 9.4 MG/DL (8.5-10.1); Magnesium 1.8 MG/DL (1.8-2.4); Osmolality,Calculated 287.4 MOS/KG (273-304); Potassium 4.7 MMOL/L (3.5-5.1); Prealbumin 4.1 MG/DL (20-40)
[2017-01-16] MEDS: VANCOMYCIN INJ 1,000 MG in SODIUM CHLORIDE 0.9% 250 ML IV SCH (06:37)
[2017-01-16] MEDS: ZINC OXIDE PASTE 113 GM TUBE TOP SCH (10:00)
[2017-01-16] MEDS: MEGESTROL 400 MG/10 ML UDCUP PO SCH (10:00)
[2017-01-16] MEDS: ALLOPURINOL 100 MG TABLET PO SCH (10:00)
[2017-01-16] MEDS: LETROZOLE 2.5 MG TABLET PO SCH (10:00)
[2017-01-16] MEDS: FERROUS SULFATE 325 MG TABLET PO SCH (10:00)
[2017-01-16] MEDS: CHLORHEXIDINE 0.12% ORAL RINSE 60 ML BOTTLE SWISH/SPIT SCH (10:24)
[2017-01-16 16:12] VITALS: BP 127/60
== END 2017-01-16 17:35 | DRG 871 ==
LOC: EDBD → EDUNIT# → N.ED 10:13 → SUATTDRO 13:20 → N.3E 13:20
PROVIDERS: ADMIT Internal Medicine; ATTEND Internal Medicine
PROC: EGDWPEG (ICD-10-PCS; 2017-01-09 10:35)